=== PATIENT | male | born 2005 | race Hispanic/Latino ===

== ENCOUNTER 2024-06-20 02:16 | Day surgery (SDC) | payer SELFPAY ==
[2024-06-19 22:44] VITALS: BP 173/119
[2024-06-19 23:00] LABS: % Basophils 0.4 % (0-2); % Eosinophils 0.7 % (0-6); % Immature Granulocytes 0.4 % (0-0.5); % Lymphocytes 13.2 % (20.5-51.1); % Monocytes 6.8 % (1.7-9.3); % Neutrophils 78.5 % (42.2-75.2); Absolute Basophils 0.1 10^3/uL (0-0.2); Absolute Eosinophils 0.1 10^3/uL (0-0.7); Absolute Immature Granulocytes 0.1 10^3/uL (0-0.05); Absolute Lymphocytes 2.1 10^3/uL (1.2-3.4); Absolute Monocytes 1.1 10^3/uL (0.1-0.6); Absolute Neutrophils 12.4 10^3/uL (1.4-6.5); Hematocrit 46.4 % (39.0-52.0); Hemoglobin 15.3 g/dL (13.0-18.0); Mean Corpuscular Hgb 26.6 pg (27.0-31.0); Mean Corpuscular Volume 80.6 fL (80.0-94.0); Mean Platelet Volume 10.5 fL (7.4-10.4); Nucleated Red Blood Cells % 0 % (-); Platelet Count 237 10^3/uL (130-400); Red Blood Cell Count 5.76 10^6/uL (4.70-6.10); Red Cell Dist. Width 13.3 % (11.5-14.5); White Blood Cell Count 15.9 10^3/uL (4.8-10.8)
[2024-06-19 23:14] LABS: Lactic Acid 1.2 mmol/L (0.7-2.0)
[2024-06-19 23:17] LABS: ALT (SGPT) 31 U/L (0-50); AST (SGOT) 25 U/L (17-59); Albumin 5.1 g/dl (3.5-5.0); Alkaline Phosphatase 108 U/L (38-126); Blood Urea Nitrogen 18 mg/dl (9-20); Calcium 10.1 mg/dl (8.4-10.2); Carbon Dioxide 23 mmol/L (22-30); Chloride 105 mmol/L (98-107); Glucose 104 mg/dl (70-99); Lipase 77 U/L (23-300); Potassium 3.7 mmol/L (3.5-5.1); Sodium 140 mmol/L (135-145); Total Bilirubin 0.7 mg/dl (0.2-1.3); Total Protein 8.5 g/dl (6.3-8.2); eGFR > 60.00
--- NOTE | 2024-06-19 23:59 | ED.GENMED ---
History of Present Illness
General
Chief Complaint: Abdominal Pain
Source: patient
Exam Limitations: none
Time Seen by Provider: 06/19/24 23:50
Nursing documentation reviewed up to this point in time: agreed with
History of Present Illness
History of Present Illness:
19-year-old male presents with lower abdominal pain onset a few hours ago no vomiting, no diarrhea no prior episodes no chronic medical conditions no prior abdominal surgeries denies any trouble urinating
Past History
Past History
ED Past Medical History: None
ED Past Surgical History: None
Social History
Tobacco: Non-smoker
Alcohol: Occasional
Drug: None
Personal: Single
Living: with family
Employment: Employed
Review of Systems
Review of Systems
All Other Systems: Not applicable
Constitutional: Denies fever
ABD/GI: Reports abdominal pain
Phy Exam
Physical Exam
Physical Exam:
Physical Exam
General: 19 male looks uncomfortable
Neck: No jaundice
Heart: s1/s2 regular rate and rhythm, no murmur. equal radial pulses.
Lungs: no acute respiratory distress. clear bilaterally
Abdomen: Tender with guarding in the right lower abdomen
Neuro: alert and oriented. no focal neurological deficits
Skin: no rash
Psychiatric: well kept. interactive and cooperative
Extremities: no edema.
Course
Orders/Labs/Results
Orders:
Orders
06/19/24 22:53
Complete Blood Count/With Diff Urgent
Comprehensive Metabolic Panel Urgent
Lactate Level [Lactic Acid] Urgent
Lipase Urgent
06/19/24 23:59
0.9% Sodium Chloride 1000 ml [Nss] 1,000 ml IV BOLUS
HYDROmorphone [Dilaudid] 1 mg IV NOW STA
Ondansetron Injectable [Zofran] 4 mg IV NOW STA
06/20/24 00:00
CT Abd/Pel (IV only)-DH only Urgent
Reason For Exam: rlq pain
Abnormal Lab Results
06/19/24
22:53
WBC 15.9 H 10^3/uL
(4.8-10.8)
MCH 26.6 L pg
(27.0-31.0)
MPV 10.5 H fL
(7.4-10.4)
Abs Immat Gran (auto) 0.1 H 10^3/uL
(0-0.05)
Absolute Neuts (auto) 12.4 H 10^3/uL
(1.4-6.5)
Absolute Monos (auto) 1.1 H 10^3/uL
(0.1-0.6)
Neutrophils % 78.5 H %
(42.2-75.2)
Lymphocytes % 13.2 L %
(20.5-51.1)
Creatinine 0.6 L mg/dL
(0.7-1.3)
Glucose 104 H mg/dl
(70-99)
Total Protein 8.5 H g/dl
(6.3-8.2)
Albumin 5.1 H g/dl
(3.5-5.0)
06/19/24 22:53
06/19/24 22:53
Vital Signs
Initial and Last Documented VS:
Initial Vital Signs
Temp Pulse Resp BP Pulse Ox
98.1 F 129 20 173/119 99
06/19/24 22:44 06/19/24 22:44 06/19/24 22:44 06/19/24 22:44 06/19/24 22:44
Last Documented Vital Signs
Temp Pulse Resp BP Pulse Ox
98.1 F 115 18 136/79 100
06/19/24 22:44 06/20/24 00:11 06/20/24 00:11 06/20/24 00:11 06/20/24 00:11
MDM/Problems Addressed
Differential Diagnosis Includes:
Appendicitis diverticulitis urinary tract pathology renal stone
MDM/Problems Addressed:
Right lower abdominal pain
*Critical Care Note
Total Time (30-74mins, 75-104mins- exclusive of procedures): Not Applicable
Update Note
Update Note:
2 AM, labs CT noted vision report noted reviewed with the patient and his father with a science interpreter
ED Attending Note
-
Portions of this chart may have been created with voice recognition software.� Occasional wrong word or��sound alike� substitutions may have occurred due to the inherent limitations of voice recognition software.
Discharge Plan
Departure
Patient Disposition: Admit
Date of Disposition: 06/20/24
Time of Disposition: 02:03
Admit to: Med/Surg
Presentation/result/management discussed w/ accepting MD/DO: JENNA Shea
Condition: Good
Discharge Problem:
Acute appendicitis
Referrals:
UNKNOWN - PT DOES,NOT KNOW [Family Provider] -
Interventions
Interventions:
*Risk Screen - Suicide Last Done: 06/20/24 00:13
*General Assessment Last Done: 06/19/24 22:44
*Neglect/Abuse Screening Last Done: 06/20/24 00:13
*ED- Fall Risk Assessment Last Done: 06/20/24 00:13
*ED COVID-19 Vaccine History Last Done: 06/20/24 00:13
DR-Hcikph-Tizgvqewfc Assessment Last Done: 06/20/24 00:16
Discharge Date and Time
Print Language: PALAUAN
[2024-06-20] VITALS (11 sets, daily range): BP systolic 111–136; BP diastolic 60–79; BMI 25.0
[2024-06-20] MEDS: ZOFRAN 4 MG IV (00:08)
[2024-06-20] MEDS: NSS 1000 IV ×3 (00:08→23:58)
[2024-06-20] MEDS: DILAUDID 1 MG IV ×2 (00:09→14:38)
--- NOTE | 2024-06-20 02:36 | HPS.HSE ---
Addendum entered and electronically signed by Raudel Bustos MD 06/20/24 08:46:
I saw and examined the patient independently.
The Clearing Supervisor's note was reviewed and I agree with the note, assessment and plan except where noted below.
Comment: This is a 19-year-old Yemeni-speaking male (history taken using the language line) who presents with 1 day history of right lower quadrant abdominal pain. Imaging, blood work, exam all consistent with acute appendicitis.
Will plan for a laparoscopic appendectomy in the OR today.
N.p.o., IV fluids, IV antibiotics.
Risks/Benefits/Alternatives, expected postoperative course and possible complications (bleeding, infection, injury to surrounding structures, acute/chronic pain) discussed at length. Patient wishes to proceed with surgery. All questions answered.
Consent obtained.
I spent 60 minutes in total for the care of this patient today including direct patient care and counseling, reviewing labs, imaging, coordination of care, as well as documentation.
Original Note:
Family Physician
-
Family Physician: NOT KNOW UNKNOWN - PT DOES
Chief Complaint
-
abdominal pain
History of Present Illness
19 year old pleasant male Yemeni speaker brought to the ED by his father due to sudden onset of transverse lower abdominal pain without associated symptoms of n/v/d, dysuria, CP, SOB or FLOWERS which began a few hours ago. No PMH or PSH. Piercer Operator
Kiran #[id number].
Medical History
Past Medical History
Past Medical History: Reports None
Past Surgical History: Reports None
Social History
Tobacco: Non-smoker
Alcohol: None
Drug: None
Personal: Single
Living: With Family
Employment: Employed
Family History
Family History: Not pertinent
Allergies / Home Medications
Allergies reflects when Allergies were last updated in [facility].
Home Medications with original date entered in [facility]
Allergy/Medication List:
Allergies
Allergy/AdvReac Type Severity Reaction Status Date / Time
No Known Allergies Allergy Unverified 06/19/24 22:44
Home Medications
No Meds [No Current Medications] 06/20/24
Review of Systems
-
History Source: Patient, Family and Coordinated Provider
Constitutional: Reports No Symptoms
EENT: Reports No Symptoms
Respiratory: Reports No Symptoms
Cardiac: Reports No Symptoms
Abdomen/GI: Reports Abdominal Pain and Nausea
: Reports No Symptoms
Musculoskeletal: Reports No Symptoms
Skin: Reports No Symptoms
Neurological: Reports No Symptoms
Endocrine: Reports No Symptoms
Hematologic/Lymphatic: Reports No Symptoms
Psych: Reports No Symptoms
Physical Exam
Vital Signs
Vital Signs
Temp Pulse Resp BP Pulse Ox
98.1 F 129 17 136/79 97
06/19/24 22:44 06/20/24 02:30 06/20/24 02:30 06/20/24 00:11 06/20/24 02:30
Physical Exam
General: Well Developed, Well Nourished, No Apparent Distress and Comfortable
HEENT: NormoCephalic, Moist mucous membranes and Atraumatic
Respiratory: Clear and Non Labored Respirations
Cardiac: S1/S2 and Regular Rhythm
Breast: Deferred by me
GI: Soft and Non Distended
Rectal: Deferred by Provider
Genito-urinary: Clear Urine
Musculoskeletal: No Clubbing, No Cyanosis, No Edema and Normal Gait & Station
Skin: Warm and Dry
Neuro: Awake, Alert, Oriented, AO x 3, No Motor Deficits and Nonfocal/grossly intact
Hematologic/Lymphatic: No Lymphadenopathy
Psych: Calm
Laboratory Results
-
06/19/24 22:53
06/19/24 22:53
Laboratory Results
Lactic Acid 1.2 mmol/L (0.7-2.0) 06/19/24 22:53
Total Bilirubin 0.7 mg/dl (0.2-1.3) 06/19/24 22:53
AST 25 U/L (17-59) 06/19/24 22:53
ALT 31 U/L (0-50) 06/19/24 22:53
Alkaline Phosphatase 108 U/L (38-126) 06/19/24 22:53
Lipase 77 U/L (23-300) 06/19/24 22:53
Data Reviewed
-
CT Scan: Report Reviewed by me
Lab Data: Labs Reviewed by me
Old Records: Reviewed
Impression/Plan
-
IMPRESSION: acute appendicitis
PLAN: 19 year old male pleasant Yemeni speaker brought to the ED by his father due to sudden onset of transverse lower abdominal pain without associated symptoms of n/v/d, dysuria, CP, SOB or FLOWERS which began a few hours ago. No PMH or PSH.
Piercer Operator Kiran #[id number].
*Acute appendicitis: NPO, NS IVF, Zosyn, dilaudid pain, zofran nausea
*DVT prophylaxis: SCDs, ambulate
*Disposition: FC. General surgery service.
--- NOTE | 2024-06-20 03:30 | PTCARENOTE ---
Pt. received to 2S from ER with father at bedside. Able to ambulate to room bed with steady gait. Assessment completed with medical authorization specialist. Pt. educated on unit policies, bed locked and in lowest position, side rails in place, call light within
reach.
[2024-06-20] MEDS: ZOSYN 50 IV ×4 (03:32→21:20)
--- NOTE | 2024-06-20 08:46 | W.SUR.PREOP ---
Pre-Operative Surgical Note
-
I have examined this patient prior to the performance of the scheduled procedure.
The patient's condition is unchanged from the time of the current History and
Physical and the patient is able to undergo the scheduled procedure.
--- NOTE | 2024-06-20 13:17 | W.IMMPOSTOP ---
Surgical Immed Post Op Note
-
Primary Surgeon: Raudel Bustos MD
Assisting Surgeon: None
Pre-op Diagnosis: Acute appendicitis
Post-op Diagnosis: Same
Procedure Performed: Laparoscopic appendectomy
Anesthesia Type: General
Specimen / Cultures: Appendix
Estimated Blood Loss: 3 cc
Complications: None
Operative Findings: Inflamed but nonperforated appendicitis. Standard three 5 mm port appendectomy. Base ligated with a 0 PDS Endoloop x 2.
POST OP PLAN:
Imaging: None
Labs: Routine AM
Diet: Advance to Regular as tolerated
Analgesia: Tylenol 650mg q6 Eric, Winter 5mg q6 PRN, Dilaudid 0.5mg q2h PRN
Neuro/vascular checks: q4h
AC/AP: Hold Therapeutic AC, Ok for DVT PPx
Activity: Ad Glo
Wound/Incisions/Drains: Routine
Abx: Can continue while admitted, anticipate stopping on discharge
Dispo: RNF, anticipate discharge home today.
--- NOTE | 2024-06-20 13:18 | OR.RPT ---
Operative Report
Operative Report
Patient Name: Julian Frazier
: 2005
Date of Operation: 06/20/2024
Preoperative Diagnosis: Acute Appendicitis
Postoperative Diagnosis: Same
Procedure(s):
Laparoscopic Appendectomy
Surgeon(s):
Dr. Bustos
Server Engineer(s):
BLANCHE Arias
Anesthesia: General
Estimated Blood Loss: 3 cc
Urine Output: None
Drains/Lines/Implants: None
Specimens:
1. Appendix
HPI/Surgical Indications:
This is a 19-year-old male who presents with a 1 day history of abdominal pain. Exam, labs and imaging are consistent with acute appendicitis. Risks/Benefits/Alternatives were discussed at length, and the patient agreed to proceed with surgery.
Operative Findings:
Inflamed but nonperforated appendicitis. Standard three 5 mm port appendectomy. Base ligated with a 0 PDS Endoloop x 2.
Procedure Description:
The patient was placed in the supine position, with the left arm tucked, and general anesthesia was induced. The abdomen was prepared and draped in a sterile fashion so as to expose the entire abdomen. A surgical time out was taken. Abdominal access
was obtained with a a left upper quadrant Veress port site entry followed by a 5 mm left lower quadrant Optiview entry. After confirming no injury on entrance, two additional 5mm ports were placed in the suprapubic area just off midline and in the
infraumbilical area. The patient was placed in Trendelenberg with the right slightly up . The appendix was identified and a window was created in the mesoappendix. The appendix was inflamed but not perforated. Using a laparoscopic bipolar energy
device, the meso appendix was divided. The base of the appendix appeared uninvolved and was ligated/divided using two 0-PDS Endoloops and the energy device. The appendix was placed in a specimen retrieval bag. Hemostasis was confirmed and the ports
were removed under visualization. The specimen was passed off the field. The umbilical port was closed with a [id number] 0-PDS and the skin for all three ports was closed with interrupted monocryls and covered with dermabond. The patient was
awoken from anesthesia in good condition and transported to the recovery area.
I was the attending physician and performed the procedure with assistance from the GARBAGE MAN above. I was present for all portions of the case excluding skin closure.
Raudel Bustos MD
--- NOTE | 2024-06-20 14:20 | PTCARENOTE ---
Telephone report received from NEURORADIOLOGIST Dequan; patient arrived in bed on 2L and IVF infusing; 4 surgical sites with surgical glue; VSS; pain level 9.
--- NOTE | 2024-06-20 15:08 | CM ---
Bedside meeting with pt and father/Kervin Frazier bedside ([phone])
project management engineer utilized
They reside together in a private home
Pt and father do not have insurance or a PCP
Pt referred to [facility] brochure provided to father
Call [facility] to jordan medications
Only Tramadol rx called in and costs $13.99
Per father, medication is affordable
Diacharge Disposition- home, no needs, family friend will transport home
[2024-06-20] MEDS: ULTRAM 25 MG PO (21:18)
[2024-06-21] MEDS: ZOSYN 50 IV (04:16)
[2024-06-21 07:26] VITALS: BP 112/65
[2024-06-21] MEDS: TYLENOL 650 MG PO (08:44)
--- NOTE | 2024-06-21 12:26 | W.PN.GS2 ---
Today's Communication / Plan
-
Dispo planning
Assessment / Plan
-
This is a 19-year-old male postoperative day 1 from a laparoscopic appendectomy. Doing well, expected postoperative course.
Will DC home today, off antibiotics.
Time Spent
Total Time Spent with Patient (in minutes): 20
Subjective Data
-
Date of Service: June 21, 2024
Interval Events:
No acute events overnight. Slept well. Pain Controlled. Denies Nausea/Vomiting, +bowel function. Tolerating diet.
Objective Data
-
Intake and Output
06/20/24 06/21/24 06/22/24
06:59 06:59 06:59
Intake Total 1010 / 1010
Balance 1010 / 1010
Intake:
Oral fluids 960 / 960
IV piggybacks 50 / 50
Other:
Number of approximated MODERATE 2
amounts of urine
Vital Signs
Temp Pulse Resp BP Pulse Ox
98.2 F 73 16 112/65 98
06/21/24 07:26 06/21/24 07:26 06/21/24 07:26 06/21/24 07:26 06/21/24 07:26
Lab Results
06/19/24 22:53
06/19/24 22:53
Calcium 10.1 mg/dl (8.4-10.2) 06/19/24 22:53
Total Bilirubin 0.7 mg/dl (0.2-1.3) 06/19/24 22:53
AST 25 U/L (17-59) 06/19/24 22:53
ALT 31 U/L (0-50) 06/19/24 22:53
Alkaline Phosphatase 108 U/L (38-126) 06/19/24 22:53
Total Protein 8.5 g/dl (6.3-8.2) H 06/19/24 22:53
Albumin 5.1 g/dl (3.5-5.0) H 06/19/24 22:53
Physical Exam
-
GENERAL/NEURO: Awake, Alert, no distress
CHEST: Unlabored breathing on RA
ABDOMEN: Soft, appropriately tender, minimally distended, incisions clean dry and intact.
Patient has a cortez catheter: No
Patient has a central line: No
== END 2024-06-21 09:15 | disposition home or self-care (01) ==
LOC: SDS 02:16
PROVIDERS: Emergency Medicine; EMERGENCY PHYSICIAN Emergency Medicine
DX: K35.80 Unspecified acute appendicitis (principal)
CPT/HCPCS: 44970; 88304; 74177; 80053; 83605; 83690; 85025; 96361; 96374; 96375; 99285; C1776; Q9967